=== PATIENT | female | born 1955 | race Caucasian/White ===

== ENCOUNTER 2017-08-11 05:58 | Day surgery (SDC) | payer MEDICARE ==
[2017-08-11] MEDS ORDERED: Ketamine HCl 50 MG/ML IJ ONE (05:59)
[2017-08-11] MEDS ORDERED: DIPRIVAN 200 MG/20 ML IV ONE (05:59)
[2017-08-11] MEDS ORDERED: Lactated Ringers 1,000 ML IV SCH (06:30)
[2017-08-11] MEDS ORDERED: Lactated Ringers 1,000 ML IV ONE (09:38)
--- NOTE | 2017-08-11 09:47 | OP ---
SURGERY DATE/TIME: 08/11/2017 0853 PREOPERATIVE DIAGNOSIS: Screening colonoscopy. POSTOPERATIVE DIAGNOSES: 1) Normal colon. 2) Poor bowel prep. PROCEDURE: Colonoscopy. SURGEON: Dante Willson M.D. ANESTHESIA: MAC by Leo Michelle CRNA. ESTIMATED BLOOD LOSS: None. SPECIMENS: None. DESCRIPTION OF PROCEDURE: After informed written consent was obtained, the patient was taken to the endoscopy suite. She underwent monitored anesthesia and a digital rectal exam showed normal sphincter tone and no internal lesions. The scope was inserted into the rectum and sequentially the entire colonic mucosa was traversed. There was semi-solid and liquid stool throughout the entire length of the colon. The level of cecum was reached and verified with direct visualization of ileocecal valve. Upon withdrawal mucosal inspection revealed no gross abnormalities. Attempt was made to suction liquid stool to provide as good as visualization as possible. I did discuss with the patient's afterwards the poor prep. In any event, retroflexion was performed prior to withdrawal with no internal lesions. The scope was removed and the patient was transferred to the recovery room in excellent condition.
[2017-08-11 10:57] VITALS: O2SAT 98
[2017-08-11 10:58] VITALS: BP 138/74; PULSE 61
== END 2017-08-11 10:45 | disposition home or self-care (01) ==
LOC: SDC 05:58
PROVIDERS: ATTEND Family Medicine
PROC: 0DJD8ZZ Inspection of Lower Intestinal Tract, Via Natural or Artificial Opening Endoscopic (ICD-10-PCS; principal; 2017-08-11)
DX: Z12.11 Encounter for screening for malignant neoplasm of colon (principal)
CPT/HCPCS: 00810; J2704

== ENCOUNTER 2017-09-29 10:41 | Observation (INO) | payer MEDICARE ==
[2017-09-29 11:45] LABS: Mean Cell Volume 94.3 fl (78-100); Mean Corpuscular Hemoglobin 31.1 pg (26-32); Platelet Count 238 K/mm3 (150-450); Red Blood Count 3.88 M/mm3 (4.1-5.4); Red Cell Distribution Width 12.5 % (11.5-14.0); White Blood Count 5.3 K/mm3 (4.0-10.5)
[2017-09-29 12:36] LABS: ALBUMIN 3.8 g/dL (3.4-5.0); BILIRUBIN,TOTAL 0.3 mg/dL (0.2-1.0); Carbon Dioxide 29.6 mEq/L (21-32); Potassium 4.5 mEq/L (3.5-5.1); Total Protein 6.7 gm/dL (6.4-8.2)
--- NOTE | 2017-09-29 12:39 | XRAY ---
Indication: Short of breath, palpitations, and swelling. Comparison: January 08, 2012. PA/lateral chest again hyperinflated with scattered fibrosis/scarring and a few calcified granulomas. No focal infiltrate, consolidation, or large effusion. Heart is not enlarged. Vascularity normal. Bony thorax intact again with mild degenerative changes. Impression: Stable nonacute chest with chronic features.
[2017-09-29] MEDS ORDERED: TYLENOL 325 MG PO PRN (13:47)
[2017-09-29 17:40] LABS: Bilirubin NEGATIVE (NEGATIVE); Blood NEGATIVE Ery/ul (0-5); COMPLETE URINE MICROSCOPIC? NO; Collection Type CLEAN CATCH; Glucose NEGATIVE (NEGATIVE); Leukocyte Esterase NEGATIVE (NEGATIVE)
[2017-09-29] MEDS ORDERED: Desyrel 150 MG PO SCH (22:00)
[2017-09-29] MEDS ORDERED: DESYREL 50 MG PO SCH (22:00)
[2017-09-30 07:41] VITALS: BP 121/58; PULSE 60; O2SAT 95
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
--- NOTE | 2017-09-30 08:59 | PCM.DCORD ---
- Discharge Discharge Date: 09/30/17 Disposition: Home, Self-Care Condition: Stable Prescriptions: New Fluoxetine HCl 20 mg [Prozac 20 MG] 20 mg PO DAILY #30 cap Continue Omeprazole 20 MG [Prilosec 20 mg] 20 mg PO DAILY Aspirin 81 mg PO DAILY Trazodone HCl 150 mg PO HS Docusate Sodium 100 mg [Colace 100 MG] 1 cap PO DAILY Trazodone HCl 50 mg [Desyrel 50 mg] 50 mg PO HS Changed Fluoxetine HCl 1 cap PO DAILY #30 capsule Discontinued Potassium Chloride 10 meq PO DAILY Furosemide 20 mg [Lasix 20 mg] 20 mg PO DAILY Follow up with: PAT ACOSTA [ACTIVE STAFF] - 10/19/17
[2017-09-30] MEDS ORDERED: Prozac 20 MG PO SCH ×2 (10:00)
[2017-09-30] MEDS ORDERED: Protonix 40MG Tablet PO SCH (10:00)
[2017-09-30] MEDS ORDERED: ECOTRIN 81 MG PO SCH (10:00)
[2017-09-30] MEDS ORDERED: FLUOXETINE HCL PO SCH (10:00)
[2017-09-30] MEDS ORDERED: NON-FORMULARY ITEM (Omeprazole 20 Mg [Prilosec 20 Mg] 20 MG) PO SCH (10:00)
[2017-09-30] MEDS ORDERED: Colace 100 MG PO SCH (10:00)
--- NOTE | 2017-10-04 09:00 | ECHO ---
DATE: 09/29/17 A transthoracic echocardiograph examination with color Doppler study was done. INDICATION: Palpitations. IMPRESSION: 1. NO REGIONAL WALL MOTION ABNORMALITY WITH ESTIMATED GLOBAL LEFT VENTRICULAR EJECTION FRACTION AROUND 50 AND 60%. 2. TRACE MITRAL REGURGITATION. 3. TRACE TRICUSPID REGURGITATION WITH RIGHT VENTRICULAR SYSTOLIC PRESSURE OF 20 MM OF MERCURY. 4. LEFT ATRIAL ENLARGEMENT. The left ventricle was visualized and demonstrated adequate motion of all the segments with estimated global left ventricular ejection fraction between 50-60%. The left ventricular thickness is normal. The mitral valve was seen and this opens adequately. There is trace mitral regurgitation. The left atrium is mildly enlarged. The aortic valve opens adequately. There is no significant gradient across the left ventricular outflow tract. Right-sided chambers are normal. There is trace tricuspid regurgitation with right ventricular systolic pressure of 20 mm Hg.
== END 2017-09-30 09:30 | disposition home or self-care (01) ==
LOC: MED SURG 11:03
PROVIDERS: ADMIT Family Medicine; ATTEND Family Medicine
DX: R00.2 Palpitations (principal); R06.02 Shortness of breath; R07.9 Chest pain, unspecified; F41.9 Anxiety disorder, unspecified; K21.9 Gastro-esophageal reflux disease without esophagitis; F32.9 Major depressive disorder, single episode, unspecified; G47.00 Insomnia, unspecified
CPT/HCPCS: 36415; 71020; 80053; 81002; 83735; 83880; 84484; 85027; 93268; 93306; G0378; A9270-GY

== ENCOUNTER 2019-03-29 19:17 | Emergency (ER) | payer SELFPAY ==
[2019-03-29 19:45] VITALS: O2SAT 96
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
[2019-03-29 20:46] VITALS: BP 147/74
[2019-03-29 23:51] VITALS: PULSE 85
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
== END 2019-03-29 22:16 | disposition home or self-care (01) ==
LOC: ED 19:17
DX: M54.5 Low back pain (principal); V89.2XXA Person injured in unspecified motor-vehicle accident, traffic, initial encounter; Y93.9 Activity, unspecified; Y92.9 Unspecified place or not applicable; M25.511 Pain in right shoulder; M25.551 Pain in right hip; K21.9 Gastro-esophageal reflux disease without esophagitis; M79.7 Fibromyalgia; F41.8 Other specified anxiety disorders; Z90.49 Acquired absence of other specified parts of digestive tract; Z79.899 Other long term (current) drug therapy
CPT/HCPCS: 71046; 71250; 72100; 72170; 74176; 99284

== ENCOUNTER 2024-03-18 09:07 | Emergency (ER) | payer MEDICARE ==
--- NOTE | 2024-03-18 09:13 | ERPHSYRPT ---
- History of Present Illness Time Seen by Provider: 03/18/24 09:13 Source: patient, family Exam Limitations: no limitations Physician History: This is a 68-year-old white female patient of Dr. Reynolds who presents from infusion clinic because of a potassium that is low and measured at 2.9. Patient is receiving vancomycin as an outpatient and will be receiving that for several days on a daily basis. Her CMP is being monitored as well because she is on the vancomycin medication. Patient has mild nausea which may be secondary to the antibiotic. Other than than mild nausea, she has no other symptoms. Patient has a history of hypertension. Timing/Duration: today Severity: mild Associated Symptoms: nausea, weakness (Chronic), No vomiting, No abdominal pain, No shortness of breath Allergies/Adverse Reactions: erythromycin base [Erythromycin Base] Allergy (Severe, Verified 03/18/24 09:11) Tightness of Throat states anaphylactic Sulfa (Sulfonamide Antibiotics) Allergy (Severe, Verified 03/18/24 09:11) Tightness of Throat states anaphylactic to erythrom. Home Medications: Aspirin 81 mg PO DAILY 08/04/17 [History] Trazodone HCl 150 mg PO HS 09/29/17 [History] Trazodone HCl 50 mg [Desyrel 50 mg] 50 mg PO HS 09/29/17 [History] Duloxetine HCl [Cymbalta] 60 mg PO DAILY 03/29/19 [History] Amlodipine Besylate 5 mg [Norvasc 5 mg] 5 mg PO DAILY 03/18/24 [History] Hydrocodone/Acetaminophen [Hydrocodone-Acetamin 5-325 mg] 5 - 325 mg PO Q6H PRN PRN 03/18/24 [History] Ropinirole HCl 1 mg PO BID 03/18/24 [History] Vancomycin/Water For Inj (Peg) [Vancomycin 1.25 gm/250 ml Bag] 1.25 gm IV DAILY 03/18/24 [History] Hx Tetanus, Diphtheria Vaccination/Date Given: No Hx Influenza Vaccination/Date Given: Yes Hx Pneumococcal Vaccination/Date Given: No Travel Risk - International Travel Have you traveled outside of the country in past 3 weeks: No - Emerging Infectious Disease Are you exhibiting symptoms associated with any current EIDs: No - Review of Systems Constitutional: Weakness (Chronic) Eyes: No Symptoms Ears, Nose, & Throat: No Symptoms Respiratory: No Symptoms Cardiac: No Symptoms Abdominal/Gastrointestinal: No Symptoms Genitourinary Symptoms: No Symptoms Musculoskeletal: No Symptoms Skin: No Symptoms Neurological: No Symptoms Psychological: No Symptoms Endocrine: No Symptoms Hematologic/Lymphatic: No Symptoms Immunological/Allergic: No Symptoms All Other Systems: Reviewed and Negative - Past Medical History Pertinent Past Medical History: Yes Neurological History: No Pertinent History ENT History: Cataracts Cardiac History: Other Respiratory History: No Pertinent History Endocrine Medical History: No Pertinent History Musculoskeletal History: Arthritis, Fibromyalgia GI Medical History: GERD History: No Pertinent History Psycho-Social History: Anxiety, Depression Female Reproductive Disorders: No Pertinent History Other Medical History: mvp, fibromyalgia, EMPYEMA, CELLULITIS. PATIENT HAS EXTRA PROTIEN IN BLOOD UNABLE TO GIVE BLOOD OR PLASMA - Past Surgical History Past Surgical History: Yes Neuro Surgical History: No Pertinent History Cardiac: No Pertinent History Respiratory: No Pertinent History Gastrointestinal: Cholecystectomy, Colon Resection Genitourinary: No Pertinent History Musculoskeletal: Orthopedic Surgery Female Surgical History: Hysterectomy, Section, Tubal Ligation Other Surgical History: rectal fistula repair. orif or rt ankle. bladder tied up 2014. vaginal prolapse repair. RAULITO. HITAL HERNIA. BX OF LUNG OF LEFT SIDE. LEFT LUNG "CLEAN OUT" PATIENT WAS OPENED ON THE LEFT SIDE OF HER CHEST TO DRAIN INFECTION - Social History Smoking Status: Former smoker Exposure to second hand smoke: No Drug Use: none Patient Lives Alone: No - Nursing Vital Signs Nursing Vital Signs: Initial Vital Signs Temperature 96.9 F 03/18/24 09:07 Pulse Rate 73 03/18/24 09:07 Respiratory Rate 37 H 03/18/24 09:07 Blood Pressure 171/70 03/18/24 09:07 O2 Sat by Pulse Oximetry 96 03/18/24 09:07 Pain Scale Pain Intensity 0 - Physical Exam General Appearance: no apparent distress, alert Eye Exam: PERRL/EOMI, eyes nml inspection Ears, Nose, Throat Exam: normal ENT inspection, moist mucous membranes Neck Exam: normal inspection, non-tender, supple, full range of motion Respiratory Exam: normal breath sounds, lungs clear, airway intact, No chest tenderness, No respiratory distress Cardiovascular Exam: regular rate/rhythm, normal heart sounds, normal peripheral pulses Gastrointestinal/Abdomen Exam: soft, normal bowel sounds, No tenderness Pelvic Exam: not done Rectal Exam: not done Back Exam: normal inspection, normal range of motion, No CVA tenderness, No vertebral tenderness Extremity Exam: normal inspection, normal range of motion, pelvis stable Neurologic Exam: alert, oriented x 3, cooperative, traffic controller cable II-XII nml as tested, normal mood/affect, nml cerebellar function, nml station & gait, sensation nml Skin Exam: normal color, warm, dry Lymphatic Exam: No adenopathy SpO2 Interpretation: normal O2 Delivery: Room Air - Course Nursing assessment & vital signs reviewed: Yes Ordered Tests: Active Orders 24 hr Category Date Time Status Telemetry q4h Care 03/18/24 09:45 Active MAG [MAGNESIUM] Stat Lab 03/18/24 08:15 Completed Medication Summary Generic Name Dose Route Start Last Admin Trade Name Freq PRN Reason Stop Dose Admin Potassium Chloride 20 meq in 100 mls @ 50 mls/hr 03/18/24 09:44 03/18/24 09:50 Potassium Chloride 20 Meq In Water 100ml IV 03/18/24 11:43 50 mls/hr STAT ONE Administration Discontinued Medications Generic Name Dose Route Start Last Admin Trade Name Freq PRN Reason Stop Dose Admin Potassium Chloride Confirm 03/18/24 09:47 Potassium Chloride 20 Meq In Water 100ml Administered 03/18/24 09:48 Dose 100 mls @ ud IV .STK-MED ONE Ondansetron HCl 4 mg 03/18/24 09:54 03/18/24 09:59 Ondansetron Hcl 4 Mg/2 Ml Vial IV 03/18/24 09:55 4 mg STAT ONE Administration Ondansetron HCl Confirm 03/18/24 09:53 Ondansetron Hcl 4 Mg/2 Ml Vial Administered 03/18/24 09:54 Dose 4 mg .ROUTE .STK-MED ONE Potassium Chloride 20 meq 03/18/24 09:45 03/18/24 09:49 Potassium Chloride Tab 10 Meq Tab PO 03/18/24 09:46 20 meq STAT ONE Administration Potassium Chloride Confirm 03/18/24 09:47 Potassium Chloride Tab 10 Meq Tab Administered 03/18/24 09:48 Dose 20 meq .ROUTE .STK-MED ONE Lab/Rad Data: Laboratory Results 03/18/24 Range/Units 08:15 Magnesium 2.1 (1.6-2.3) mg/dL - Progress Progress: unchanged Progress Note: 03/18/24 10:12 My medical decision making and the assignment of low to moderate complexity to this patient's medical issue today is based on review of the patient's past medical history, review the patient's medication list, review of patient drug allergy list, history present illness and physical findings on examination. The workup in this patient includes checking a magnesium level. This level was not checked on this morning's labs at 815. We will infused 20 mEq of potassium intravenously while on the monitor. Will also provide the patient with 20 mill equivalents of potassium orally. The patient does not want to stay in the hospital. I do not feel it is necessary for her to stay in the hospital with a potassium of 2.9 before infusing her with 20 mill equivalents of potassium intravenously and providing her with 20 mEq of potassium orally. I will remotely send a prescription of both Zofran and 10 mEq of potassium to the pharmacy. The infusion center is monitoring the patient's CMP which includes the potassium and her renal function. Counseled pt/family regarding: lab results, diagnosis, need for follow-up Medical Desision Making - Independent Historian Additional History obtained from: Spouse - Risk of complications The pt has a mod risk of morbidity or mortality based on: Need for prescription drug management - Departure Departure Disposition: Home Clinical Impression: Hypokalemia, Nausea Condition: Stable Critical Care Time: No Referrals: ANA REYNOLDS MD [Primary Care Provider] - Follow up/PCP as directed Additional Instructions: Drink plenty of fluids. Take your medications as prescribed. Continue your outpatient mitomycin as prescribed. Follow-up with your primary care provider on 03/20/2024 by phone to make arrangements for follow-up appointment to be seen in the next 3 to 5 days. Prescriptions: Ondansetron ODT 4 MG [Zofran Odt 4 mg] 4 mg PO Q6H PRN PRN #10 tablet PRN Reason: Vomiting Potassium Chloride Tab* [Klor Con] 10 meq PO BID #4 tab
[2024-03-18 09:27] VITALS: TEMP 96.9
[2024-03-18] MEDS ORDERED: Klor Con ONE (09:47)
[2024-03-18] MEDS ORDERED: POTASSIUM CHLORIDE 20 mEq IN WATER 100ML 100 ML IV ONE (09:47)
[2024-03-18] MEDS: Klor Con PO ONE (09:49)
[2024-03-18] MEDS: POTASSIUM CHLORIDE 20 mEq IN WATER 100ML 20 MEQ/100 ML BAG IV ONE (09:50)
[2024-03-18] MEDS ORDERED: Zofran 4 MG/2 ML VIAL ONE (09:53)
[2024-03-18] MEDS: Zofran 4 MG/2 ML VIAL IV ONE (09:59)
[2024-03-18 11:35] VITALS: BP 140/60; PULSE 73; RESP 20; O2SAT 93
== END 2024-03-18 11:59 | disposition home or self-care (01) ==
LOC: ED 09:07
DX: E87.6 Hypokalemia (principal); R11.0 Nausea; I10 Essential (primary) hypertension; Z79.891 Long term (current) use of opiate analgesic; Z79.899 Other long term (current) drug therapy
CPT/HCPCS: 36415; 83735; 96365; 96366; 96374; 99283; J2405; J3480; A9270-GY

== ENCOUNTER 2024-09-28 12:29 | Day surgery (SDC) | payer MEDICARE ==
[2024-09-28] MEDS ORDERED: BUPIVACAINE 0.5% VIAL IJ ONE (12:30)
[2024-09-28] MEDS ORDERED: Depo-Medrol 40 MG/ML IM ONE (12:30)
[2024-09-28] MEDS ORDERED: DIPRIVAN 200 MG/20 ML IV ONE (14:06)
--- NOTE | 2024-09-28 14:52 | XRAY ---
Indication: Left intercostal nerve block at T8-T10. Intraoperative fluoroscopy provided for 43 seconds. 3 digital spot images submitted for interpretation demonstrates needle tip projecting lateral to unknown left mid rib. Correlate with intraoperative findings/report.
--- NOTE | 2024-09-28 15:02 | XRAY ---
43 seconds of fluoroscopy was used in surgery for a left intercostal nerve block at level T8-T10.
== END 2024-09-28 14:45 | disposition home or self-care (01) ==
LOC: SDC-PAIN 12:29
PROVIDERS: ATTEND Psychiatry & Neurology Pain Medicine
DX: R07.81 Pleurodynia (principal)
CPT/HCPCS: 64420; 64421; 71100; 77002; J2704